=== PATIENT | male | born 1940 | race Caucasian/White ===

== ENCOUNTER → 2018-02-17 | Outpatient (CLI) | payer MEDICARE, BC ==
--- NOTE | 2018-02-17 13:13 | CT ---
EXAMINATION TYPE: CT pelvis wo con DATE OF EXAM: 02/17/2018 COMPARISON: None HISTORY: Prostate cancer CT DLP: 269.0 mGycm Automated exposure control for dose reduction was used. FINDINGS: Turner catheter is in place decompressing the urinary bladder and creating circumferential urinary jose david dder wall thickening. Central zone calcifications are seen of the prostate gland. The known prostate gland carcinoma is not readily visualized on noncontrast CT, however there is an ill-defined fat plan e with the seminal vesicles. No focal adenopathy is seen. Shotty periaortic nonenlarged (less than 5 mm short axis) lymph nodes are noted. Nonenlarged superficial inguinal lymph nodes are also seen with the largest measuring 6 mm in short axis on the left and 9 mm in short axis on the right. There is extensive calcification of the visualized infrarenal abdominal aorta and its branches. Solit gómez left renal calculus is partially visualized in the lower pole measuring up to 5 mm. No dilated la rge or small bowel. Moderate amount retained colonic stool is seen. Degenerative changes of the femoral acetabular joints are moderate. Sacroiliac joint sclerosis is als o noted. Defect within the right iliac bone is likely a harvest site from prior intervertebral disc a utograft. However no postsurgical changes of the spine are seen on the given images. Hypertrophic fac et changes are seen, degenerative change of the lumbosacral spine. Patchy sclerosis of the right mary c bone is indeterminate on image 16 and poorly measured given indistinct margins measuring at least 1 .5 cm. This is of low suspicion for metastasis. There is grade 1 anterolisthesis of L4 and L5. There is mild levoscoliosis of the lumbar spine. IMPRESSION: 1. FOCAL DEFORMITY OF THE RIGHT ILIAC BONE MOST TYPICALLY FROM HARVEST SITE OF PRIOR INTERVERTEBRAL D ISC ALLOGRAFT ALTHOUGH NO POSTSURGICAL CHANGES ARE SEEN ON THIS LIMITED EXAM. CORRELATE WITH SURGICAL HISTORY. 2. INDETERMINANT RIGHT ILIAC PERIPHERALLY SCLEROTIC LESION OF LOW SUSPICION FOR METASTASIS, HOWEVER C ORRELATION WITH THE NUCLEAR MEDICINE BONE SCAN THAT HAS BEEN ORDERED WILL BE PERFORMED. 3. NO RETROPERITONEAL, PELVIC SIDEWALL, OR LOCAL ADENOPATHY. NONENLARGED SUPERFICIAL INGUINAL LYMPH N ODES BILATERALLY MEASURING UP TO 9 MM ON THE RIGHT. 4. ILL-DEFINED POSTERIOR BORDER OF THE PROSTATE GLAND ABUTTING THE SEMINAL VESICLES, DIRECT INVASION OF THE SEMINAL VESICLES IS POSSIBLE AND COULD BE FURTHER ASSESSED WITH MR PROSTATE IF CLINICALLY SARAI CATED.
--- NOTE | 2018-02-17 15:52 | NM ---
EXAMINATION TYPE: NM bone scan whole body DATE OF EXAM: 02/17/2018 COMPARISON: CT pelvis same date HISTORY: Prostate cancer, C 63 Delayed whole-body scanning was performed following the injection of 25.8 mCi Tc 99m MDP. Images acq uired 4 hours post injection. FINDINGS: There is a focus of increased radio pharmaceutical uptake at the level of the posterior right ilium w hich corresponds to the sclerotic lesion seen on CT. Uptake within the lumbar spine is likely degenerative. There is some diminished activity within the l eft kidney as compared to right, hydroureter noted on the left on CT. Uptake within the feet, ankles, knees, wrists, elbows, hands and shoulders is likely due to arthropathy. Uptake along the mid shaft of the right kidney is indeterminate. Maxilla and mandible uptake is likely due to periodontal diseas e. There is a scoliosis in the visualized spine. IMPRESSION: I suspicious for metastasis especially to the posterior right ilium. Indeterminate uptake in the righ t leg. There may be obstruction of the left kidney. Degenerative disc disease. Additional findings ab ove.
== END ==
LOC: RADNMMAIN 09:41
PROVIDERS: ATTEND Urology
DX: C61 Malignant neoplasm of prostate (principal)
CPT/HCPCS: 72192; 78306; A9503